=== PATIENT | female | born 1965 ===

== ENCOUNTER → 2023-08-26 14:38 | Outpatient (CLI) | payer OTHER, SELFPAY ==
--- NOTE | 2023-08-26 14:41 | DI.NM.S_ITS ---
PROCEDURE: NM EXERCISE TREADMILL NON NUC COMPARISON: None. INDICATIONS: Chest pain, unspecified FINDINGS: Patient exercised per the Shun protocol. Total exercise time was 9 minutes 55 seconds. Maximum METS attained is 12.8. Maximum heart rate is 166 bpm. This is 103% of maximum predicted heart rate. Maximum blood pressure was 190/90 with a baseline blood pressure of 160/[place] [address]. DANISHA is -42%. No ST changes noted. No arrhythmias present. No chest pains voiced. Test terminated secondary to fatigue. There was normal heart rate and blood pressure response to exercise. IMPRESSION: 1. Normal exercise treadmill stress test. 2. Good exercise tolerance. Dictated by: Mohit Villasenor M.D. on 08/26/2023 at 16:53 Approved by: Mohit Villasenor M.D. on 08/26/2023 at 16:56
== END ==
PROVIDERS: PCP Student in an Organized Health Care Education/Training Program; Referring Provider Internal Medicine Cardiovascular Disease; Visit Provider Internal Medicine Cardiovascular Disease
DX: R07.9 Chest pain, unspecified (principal)
CPT/HCPCS: 93017